=== PATIENT | male | born 1990 | race Caucasian/White ===

== ENCOUNTER → 2025-07-02 | Outpatient (CLI) | payer OTHER, SELFPAY ==
--- NOTE | 2025-07-02 12:52 | RAD_ITS ---
PROCEDURE: LUMBAR SPINE 2 OR 3 VIEWS 07/02/2025 REASON FOR EXAM: PAIN TECHNIQUE: LUMBAR SPINE 2 OR 3 VIEWS FINDINGS: No evidence of acute fracture or dislocation. Vertebral body heights are maintained. Intervertebral disc spaces are maintained. RAD/Lumbar Spine 2 or 3 Views IMPRESSION: No acute abnormality. Reading Location: [id number]
== END | disposition home or self-care (01) ==
PROVIDERS: PCP Family Medicine; Referring Provider Nurse Practitioner Family; Visit Provider Nurse Practitioner Family
DX: S39.012A Strain of muscle, fascia and tendon of lower back, initial encounter (principal)
CPT/HCPCS: 72100